=== PATIENT | female | born 1980 | race Caucasian/White ===

== ENCOUNTER → 2021-03-16 | Outpatient (CLI) | payer BC | LOC: HEART 5 14:28 | DX: R06.02 Shortness of breath (principal) ==

== ENCOUNTER → 2021-05-15 | Outpatient (CLI) | payer BC | LOC: EXRD 13:32 | DX: E04.9 Nontoxic goiter, unspecified (principal); Z83.49 Family history of other endocrine, nutritional and metabolic diseases | CPT/HCPCS: 76536 ==